=== PATIENT | male | born 1940 | race Caucasian/White ===

== ENCOUNTER → 2016-08-14 | Outpatient (CLI) | payer OTHER, BC ==
[~2016-08-14] MED LIST: ADVIL100 M2 PO; ANDROGEL150 GM TOP; ANDROGEL2.5 GM; APAP500 PO; ASPIRIN EC81 M1 PO; ASPIRIN325 PO; ATABEX DHA CAP1 EACH PO; ATENOLOL 25 MG25 M1 PO; ATENOLOL 50MG T50 M1 PO; CENTRUM COMPLE1 EACH PO; CHLOR-TABLET4 MG PO; CIPRO250 M2; COLACE100 MG PO; DIPHEN25 M1; DOXYCYCLINE 10100 M1 PO; FLECAINIDE ACE100 MG PO; FLEXERIL PO; FLOMAX0.4 MG PO; GLUCOSAMIN-CHO1 EACH PO; LISINOPRIL10 MG PO; NORVASC 5 MG TAB5 MG PO; ODORLESS GARLI500 MG PO; OMEGA-31000 MG PO; ONE-A-DAY WOMENS PO; PERCOCET 10-321 EACH PO; ZOCOR 20 MG TAB20 M1 PO
== END ==
LOC: MRI 15:29
DX: M25.512 Pain in left shoulder (principal)

== ENCOUNTER 2018-05-23 20:06 | Inpatient (IN) | payer OTHER, BC ==
[~2018-05-23] VITALS: Ht 190.5 cm; Wt 102.1 kg
[~2018-05-23 20:06] MED LIST changes: -COLACE100 MG PO
[2018-05-23 20:20] VITALS: BP 96/73
[2018-05-23 20:35] LABS: HEMATOCRIT 49.1 % (42.0-52.0); HEMOGLOBIN 16.7 gm/dL (14.0-18.0); MCH 34.1 pg (26.0-34.0); MCV 100.1 fL (80.0-100.0); PLATELET COUNT 110 thou/uL (150-400); RBC 4.91 mil/uL (4.50-6.00); RDW 13.1 % (10.5-14.5); WBC 7.5 thou/uL (4.0-11.0)
[2018-05-23 20:47] LABS: ANION GAP 9 mmol/L (7-16); BUN 34 mg/dL (7-18); CALCIUM 9.1 mg/dL (8.5-10.1); CHLORIDE 105 mmol/L (98-107); CO2 25 mmol/L (21-32); CREATININE 2.1 mg/dL (0.7-1.3); GLUCOSE 131 mg/dL (74-106); SODIUM 139 mmol/L (136-145)
[2018-05-23 20:56] LABS: ABSOLUTE NEUTROPHILS 3.4 thou/uL (1.4-8.2); TROPONIN-I <0.06 ng/mL (<0.06)
[2018-05-23 20:57] LABS: ANISOCYTOSIS 1+; POLYCHROMASIA OCCASIONAL
--- NOTE | 2018-05-23 23:38 | NUR ---
CALLED PER PT REQUEST, NUMBER TO ED GIVEN FOR BAD ASSIGNMENT FOLLOW UP IN THE MORNING
[2018-05-24] MEDS ORDERED: VITAMIN D5000 UNIT PO (01:19)
[2018-05-24 01:38] VITALS: BP 141/90
[2018-05-24 06:36] LABS: CHOLESTEROL 93 mg/dL (<200); HDL CHOLESTEROL 37 mg/dL (>40); LDL CHOLESTEROL 45 mg/dL (<100); TC:HDL 2.5 Ratio (Not establshd); TRIGLYCERIDE 55 mg/dL (<150); VLDL 11 mg/dL (<40)
[2018-05-24 06:38] LABS: TROPONIN-I 8.26 ng/mL (<0.06)
[2018-05-24 07:24] VITALS: BP 109/85
--- NOTE | 2018-05-24 10:08 | EKG ---
[address] [place] [employer] [place] [address] ELECTROCARDIOGRAM REPORT Name: LATRICE KOVACS Room #: 207-P ADM IN M.R.#: [id number] Admission: 05/23/18 Attend Phys: Wei Queen Discharge: Date of : 42 Report #: [id number] THIS REPORT FOR: //name// [facility] ED Test Date: 2018-05-23 Test Time: 20:15:19 Pat Name: LATRICE KOVACS Department: Room: 207 Gender: M Senior Java Data Architect: SANDRA : 1940 Requested By: Nicholas Orlando Order Number: [id number] MD: Christopher Banerjee Measurements Intervals [place] Rate: 105 P: 77 WV: 183 QRS: -51 QRSD: 99 T: 58 QT: 366 QTc: 484 Interpretive Statements Atrial flutter with 2:1 AV conduction Left anterior fascicular block Abnormal R-wave progression, early transition Anteroseptal ST segment elevation, consider injury Compared to ECG 04/11/2016 08:00:08 Repolarization abnormality is now present Electronically Signed On 05-24-2018 10:08:25 LEDGER POSTER by hCristopher Banerjee [email or web address] <ELECTRONICALLY SIGNED> By: Christopher Banerjee MD, FAC 05/24/18 1008 14 14 Christopher Banerjee MD, FAC /EPI
--- NOTE | 2018-05-24 10:16 | EKG ---
[address] [address] ELECTROCARDIOGRAM REPORT Name: LATRICE KOVACS Room #: 207-P ADM IN M.R.#: [id number] Admission: 05/23/18 Attend Phys: Wei Queen Discharge: Date of : 42 Report #: [id number] THIS REPORT FOR: //name// [facility] ED Test Date: 2018-05-24 Test Time: 06:43:12 Pat Name: LATRICE KOVACS Department: Room: 207 Gender: M Excavating Contractor: Stefano SALGADO : 1940 Requested By: Brittanie Sims Order Number: [id number] MD: Christopher Banerjee Measurements Intervals [place] Rate: 109 P: 78 [place]: 183 QRS: -60 QRSD: 130 T: 39 QT: 341 QTc: 460 Interpretive Statements Probable atrial flutter with 2:1 AV conduction LAFB Probable anterolateral infarct, acute Compared to ECG 04/11/2016 08:00:08 anterior repolarization abnormality is more pronounced Electronically Signed On 05-24-2018 10:15:55 MANAGER ENGLISH by Christopher Banerjee [email or web address] <ELECTRONICALLY SIGNED> By: Christopher Banerjee MD, FACC 05/24/18 1015 0643 0643 Chrisotpher Banerjee MD, [facility] /EPI
--- NOTE | 2018-05-24 10:31 | CATHLAB ---
[facility] [address] [place] [address] INVASIVE PROCEDURE REPORT Name: LATRICE KOVACS Room #: 207-P [facility] IN [facility].#: [id number] Admission: 05/23/18 Attend Phys: Wei Orozco Discharge: Date of : 42 Date of Service: 05/24/18 1030 Report #: [id number] THIS REPORT FOR: //name// APPROVED REPORT Study performed: 05/24/2018 07:35:23 Patient Details Patient Status: ED Room #: The patient is a 77 year-old male Event Personnel Christopher Banerjee Residential Carpenter, Oma Martinez RN RN, Emily Seals RTR, JASON Moseley, Klaus Warner Monitor Procedures Performed Left Heart Cath w/or w/o Coronaries [id number] [facility], PCI of diagonal branch Indication STEMI (>12 hrs to = 24 hrs), Chest pain Risk Factors Arterial HypertensionDysplipidemia , HypertensionRenal Failure Procedure Narrative The Right Groin^ was infiltrated with 1% Lidocaine subcutaneous anesthesia. A PINNACLE 6FR Sheath #[id number] sheath was inserted into the RFA^. Coronary angiography was performed using coronary diagnostic catheters. The right coronary system was accessed and visualized with a JR4 catheter. The left coronary system was accessed and visualized with a JL4 catheter. The left ventricle was accessed and visualized with a PIGTAIL catheter. Left ventricular/Aortic Valve gradient assessed via catheter pullback. Left ventriculogram was performed in 30 degree projection. Closure device was deployed with a 6 Fr MYNXGRIP 6/7F #[id number]. There was no hematoma. Intraoperative Conscious Sedation Sedation start time: 7.50 Case end Time: 10.06 Fentanyl 100 mcg Dose: DAP 32508 cGycm2 3731 mGy Contrast Type and Amount: Visipaque 190 ml [facility] [place] [address] INVASIVE PROCEDURE REPORT Name: LATRICE KOVACS Room #: 207-P [facility] IN .R.#: [id number] Admission: 05/23/18 Attend Phys: Wei Orozco Discharge: Date of : 42 Date of Service: 05/24/18 1030 Report #: [id number] Coronary Angiography The patient's coronary anatomy is right dominant. Diagnostic Cath Left Main Large, normal left main LAD Mild proximal and mid vessel LAD plaquing Diagonal 1 The first diagonal was occluded in its midportion, just after its first bifurcation Circumflex The circumflex was large and comprised of a single marginal branch. OM1 Normal, large first marginal branch Right Coronary The right coronary was large, dominant and exhibited mild tended 20% proximal, mid, and distal vessel plaquing R PDA Large posterior descending branch, angiographically normal RPLV Large posterior lateral branch, angiographically normal Left Ventriculography The left ventricle is normal in size with normal contractility. The left ventricular ejection fraction is estimated to be 50-55%. Left ventricular wall motion abnormalities are present. There is no mitral insufficiency. Hypokinesis of the distal anterolateral wall Hemodynamics The aortic pressure is 138/86 mmHg with a mean of 113 mmHg. The left ventricular pressure is 163/22 mmHg with a mean of mmHg. The left ventricular end diastolic pressure is 26 mmHg. There was no gradient across the aortic valve upon pullback. Pullback from the left ventricle to the aorta revealed no gradient across the aortic valve. PCI Technique Lesion Anticoagulation was achieved with Heparin, Integrilin. Percutaneous coronary intervention was performed on the first diagonal branch. The lesion stenosis prior to intervention was 100% with JANE 0 flow. A LAUNCHER 6FR JL4.5 #[id number] Guide Catheter was used to engage the ostium. A Luge Wire .014 x 182CM #[id number] Interventional Guidewire was used to cross the lesion. BALLOON DILATION A Balloon catheter Sprinter OTW 2.5 x 12 #[id number] was inserted and inflated up to meliza for seconds. Multiple attempts were made to wire the diagonal branch occlusion without success. This vessel appeared very tortuous in its midsection. Given the late presentation, [facility] [address] [place] [address] INVASIVE PROCEDURE REPORT Name: LATRICE KOVACS Room #: 207-P [facility] IN .R.#: [id number] Admission: 05/23/18 Attend Phys: Wei Orozco Discharge: Date of : 42 Date of Service: 05/24/18 1030 Report #: [id number] resolution of chest pain, and nature of the stenosis, the risk of further manipulation and/or intervention was thought to exceed the benefit. Final angiography reveals 100 % stenosis with JANE 0 flow. Conclusion 1. Mild left ventricular dysfunction with hypokinesis of the distal anterolateral wall. EF 50-55% 2. Normal left main 3. Mild plaquing of the LAD. Occlusion of the midportion of the first diagonal branch as detailed above 4. Normal, nondominant circumflex 5. Large, dominant right coronary with mild plaquing Recommendations Cardiac Rehabilitation Referral Aggressive Medical Therapy Medications Administered MARLYN Inhibitor (any) Aspirin (any) Beta Nicole (any) Statin (any) Cardiac Rehabilitation Referral <ELECTRONICALLY SIGNED> By: Christopher Banerjee MD, [facility] 05/24/18 1030 1030 1030 Christopher Banerjee MD, FAC /INF
--- NOTE | 2018-05-24 10:49 | NUR ---
PT ORIENTED TO ROOM AND UNIT. BED LOW AND LOCKED, SIDE RAILS UPX 3, CALL LIGHT IN REACH. RIGHT GROIN CDI WIHT NO HEMATOMA. WILL CONTINUE TO ASSESS.
--- NOTE | 2018-05-24 14:42 | NUR ---
PT OFF BEDREST UP TO VOID. ONLY ABLE TO VOID A LITTLE AT AT TIME. WILL CHECK OVR AND ONFORM ATTENDING.
--- NOTE | 2018-05-24 17:36 | NUR ---
DR. BELTRAN WILL ADD TENORMIN PO TO [facility] TO HELP RATE CONTROL.
--- NOTE | 2018-05-24 19:10 | NUR ---
BEDSIDE REPORT GIVEN TO CARSON MADDEN/
[2018-05-24 20:15] VITALS: BP 136/77
[2018-05-24 23:10] VITALS: BP 107/77
--- NOTE | 2018-05-25 02:40 | NUR ---
ASSUMED PT CRE AT 1900. PT A/OX4, VITAL SIGNS STABLE, ASSESSMENT CHARTED. NO COMPLAINTS OF CHEST PAIN. PT COMPLAINED OF SOME BACK PAIN FROM PROLONGED BEDREST. PAIN ADEQAUTELY MANAGED WITH REPOSITIONING, AND SITTING IN RECLINER. BLADDER SCANNED AT 0230, WHICH INDICATED 710ML RESIDUAL VOLUME. PT WAS ABLE TO AMBULATE TO BATHROOM AND VOIDED APPROXIMATELY 400-500ML. BLADDER SCANNED AGAIN AT ABOUT 2235WHICH INDICATED 320ML RESIDUAL VOLUME. AT ABOUT MIDNIGHT, PT WAS ABLE TO VOID ABOUT 300ML. PT RESTE WELL THROUGH THE NIGHT. CALLED APPROPRIATELY. PROGRESSING TOWARD PLAN OF CARE. WILL CONTINUE TO MONITOR.
[2018-05-25 04:09] LABS: CALCIUM 8.3 mg/dL (8.5-10.1); POTASSIUM 4.5 mmol/L (3.5-5.1); TOTAL BILIRUBIN 0.6 mg/dL (<0.1-1.0); TOTAL PROTEIN 6.1 g/dL (6.4-8.2)
[2018-05-25 04:18] LABS: TROPONIN-I 27.04 ng/mL (<0.06)
[2018-05-25 04:24] LABS: HEMOGLOBIN 15.2 gm/dL (14.0-18.0); MCH 33.6 pg (26.0-34.0); MCHC 33.1 g/dL (28.0-37.0); MCV 101.5 fL (80.0-100.0); RBC 4.53 mil/uL (4.50-6.00); RDW 13.6 % (10.5-14.5)
[2018-05-25 04:37] VITALS: BP 110/62
[2018-05-25 07:11] VITALS: BP 113/66
--- NOTE | 2018-05-25 08:18 | EKG ---
[address] [address] ELECTROCARDIOGRAM REPORT Name: LATRICE KOVACS Room #: 207-P ADM IN M.R.#: [id number] Admission: 05/23/18 Attend Phys: Kiran Oliver MD Discharge: Date of : 42 Report #: [id number] THIS REPORT FOR: //name// [facility] Test Date: 2018-05-25 Test Time: 06:31:17 Pat Name: LATRICE KOVACS Department: Room: 207 P Gender: M Online Publisher: FALGUNI : 1940 Requested By: Christopher Banerjee Order Number: [id number] MD: Christopher Banerjee Measurements Intervals [place] Rate: 83 P: [place]: QRS: -67 QRSD: 119 T: -3 QT: 327 QTc: 385 Interpretive Statements Atrial flutter Incomplete right bundle branch block Anterolateral infarct, recent Compared to ECG 05/24/2018 06:43:12 Ventricular response has slowed Electronically Signed On 05-25-2018 8:18:07 CAMP DIRECTOR by Christopher Banerjee [email or web address] <ELECTRONICALLY SIGNED> By: Christopher Banerjee MD, [facility] 05/25/18817 0 0 Christopher Banerjee MD, [facility] /EPI
[2018-05-25 12:04] VITALS: BP 102/68
--- NOTE | 2018-05-25 12:14 | 2DMMODE ---
[facility] [address] [facility] [employer] [place] [address] 2 D/M-MODE ECHOCARDIOGRAM Name: LATRICE KOVACS Room #: 207-P ADM IN M.R.#: [id number] Admission: 05/23/18 Attend Phys: Kiran Oliver MD Discharge: Date of : 42 Date of Service: 05/25/18 1214 Report #: [id number] THIS REPORT FOR: //name// APPROVED REPORT Study performed: 05/25/2018 11:22:27 EXAM: Comprehensive 2D, Doppler, and color-flow Echocardiogram Patient Location: Echo lab Room #: [facility] Status: routine BSA: 2.31 HR: 90 bpm BP: 113/66 mmHg Rhythm: Irregular Other Information Study Quality: Adequate Indications Acute NC, Atrial flutter, chest pain. Hx: Afib, HTN,HLP 2D Dimensions RVDd: 37.66 mm IVSd: 12.36 (7-11mm) LVOT Diam: 20.87 (18-24mm) LVDd: 46.43 mm PWd: 11.80 (7-11mm) Ascending Ao: 34.04 (22-36mm) LVDs: 30.49 (25-40mm) Aortic Root: 36.73 mm Volumes Left Atrial Volume (Systole) Single Plane 4CH: 59.81 mL Single Plane 2CH: 61.36 mL LA ESV Index: 29.00 mL/m2 Aortic Valve AoV Peak Bautista.: 1.41 m/s AO Peak Gr.: 8.00 mmHg LVOT Max P.25 mmHg LVOT Max V: 1.03 m/s CORNELIUS Vmax: 2.49 cm2 Mitral Valve E/A Ratio: 2.0 MV Decel. Time: 143.25 ms MV E Max Bautista.: 0.89 m/s [facility] [place] [address] 2 D/M-MODE ECHOCARDIOGRAM Name: LATRICE KOVACS Room #: 207-P [facility] IN M.R.#: [id number] Admission: 05/23/18 Attend Phys: Kiran Oliver MD Discharge: Date of : 42 Date of Service: 05/25/18 1214 Report #: [id number] MV A Bautista.: 0.44 m/s MV PHT: 41.54 ms IVRT: 76.12 ms Pulmonary Valve PV Peak Bautista.: 0.84 m/s PV Peak Gr.: 2.80 mmHg Pulmonary Vein P Vein S: 0.41 m/s P Vein D: 0.24 m/s P Vein S/D Ratio: 1.71 Tricuspid Valve TR Peak Bautista.: 2.24 m/s RAP Estimate: 5.00 mmHg TR Peak Gr.: 20.11 mmHg PA Pressure: 25.00 mmHg Left Ventricle The left ventricle is normal size. There is normal left ventricular wall thickness. Left ventricular systolic function is normal. LVEF is 50-55%. Right Ventricle The right ventricle is normal size. The right ventricular systolic function is normal. Atria The left atrium size is normal. The right atrium size is normal. Aortic Valve Aortic valve leaflets are mildly thickened. No aortic regurgitation is present. There is no aortic valvular stenosis. Mitral Valve The mitral valve is normal in structure. Trace to mild mitral regurgitation. Tricuspid Valve The tricuspid valve is normal in structure. Trace tricuspid regurgitation. Estimated PAP is 25mmHg Pulmonic Valve The pulmonary valve is normal in structure. Trace pulmonic regurgitation. [facility] [address] [place] [address] 2 D/M-MODE ECHOCARDIOGRAM Name: DAVIDACHRISTENLATRICE SMITH Room #: 207-P [facility] IN M.R.#: [id number] Admission: 05/23/18 Attend Phys: Kiran Oliver MD Discharge: Date of : 42 Date of Service: 05/25/18 1214 Report #: [id number] Great Vessels The aortic root is normal in size. IVC is normal in size and collapses >50% with inspiration. Pericardium There is no pericardial effusion. <Conclusion> The left ventricle is normal size. LVEF is 50-55%. Aortic valve leaflets are mildly thickened. The mitral valve is normal in structure. Trace to mild mitral regurgitation. The tricuspid valve is normal in structure. Trace tricuspid regurgitation. Estimated PAP is 25mmHg The pulmonary valve is normal in structure. Trace pulmonic regurgitation. There is no pericardial effusion. <ELECTRONICALLY SIGNED> By: Butch Harkins MD 05/25/18 1214 121 13 Butch Harkins MD /INF
[2018-05-25 15:00] VITALS: BP 95/64
--- NOTE | 2018-05-25 19:18 | NUR ---
ASSUMED PATIENT CARE THIS AM. PATIENT LYING IN BED, A&O. ROOM AIR. UP WITH STAND BY ASSIST. VOIDING IN BATHROOM. PATIENT BLADDER SCAN POST VOID, MINIMAL, NO STRAIGHT CATH NEEDED. TOLERATING DIET. PATIENT STATES HE WOULD LIKE TO REST THIS AFTERNOON. MINIMAL INTERUPTIONS UNLESS INDICATED. CALL LIGHT WITHIN REACH.
[2018-05-25 20:15] VITALS: BP 106/58
[2018-05-26 04:31] VITALS: BP 100/63
--- NOTE | 2018-05-26 04:39 | NUR ---
ASSUMED PT CARE AT 1900. PT A/OX4, VITALSIGNS STABLE, ASSESSMENT CHARTED. NO COMPLAINTS OF CHEST PAIN. PT RESTED WELL THROUGH THE NIGHT. PROGRESSING TOWARD PLAN OF CARE. POSSIBLE DISCHARGE IN AM. WILL CONTINUE TO MONITOR.
[2018-05-26 07:45] VITALS: BP 108/70
--- NOTE | 2018-05-26 08:35 | EKG ---
[address] [address] ELECTROCARDIOGRAM REPORT Name: LATRICE KOVACS Room #: 207-P ADM IN M.R.#: [id number] Admission: 05/23/18 Attend Phys: Kiran Oliver MD Discharge: Date of : 42 Report #: [id number] THIS REPORT FOR: //name// [facility] Test Date: 2018-05-26 Test Time: 06:48:40 Pat Name: LATRICE KOVACS Department: Room: 207 P Gender: M Unionmelt Operator: FALGUNI : 1940 Requested By: Christopher Banerjee Order Number: [id number] MD: Christopher Banerjee Measurements Intervals [place] Rate: 102 P: MD: QRS: 0 QRSD: 104 T: 83 QT: 298 QTc: 389 Interpretive Statements Atrial flutter Anterolateral infarct, recent ST elevation, consider inferior injury Compared to ECG 05/25/2018 06:31:[address] segment elevation Electronically Signed On 05-26-2018 8:34:48 SKIVER MACHINE OPERATOR by Christopher Banerjee [email or web address] <ELECTRONICALLY SIGNED> By: Christopher Banerjee MD, [facility] 05/26/18 0834 7 Christopher Banerjee MD, [facility] /EPI
[2018-05-26] MEDS ORDERED: COLACE100 MG PO (09:02)
[2018-05-26 11:45] VITALS: BP 93/62
[2018-05-26] MEDS ORDERED: PRADAXA75 MG PO (11:46)
[2018-05-26] MEDS ORDERED: FLOMAX0.4 MG PO (11:47)
[2018-05-26 13:06] VITALS: BP 93/62
[2018-05-26 13:22] VITALS: BP 122/66
--- NOTE | 2018-05-26 14:14 | NUR ---
ASSUMED PATIENT CARE THIS AM. PATIENT LYING IN BED, A&O. ROOM AIR. UP AD JAIME. NO COMPLAINTS STATED. DISCHARGE HOME WITH THIS AFTERNOON.
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
== END 2018-05-26 14:10 | disposition home or self-care (01) | DRG 250 ==
LOC: ER 20:06 → 2N 21:51 → EROBS 21:51 → 2N 05-24 09:09 → ENTRNSPT 05-26 13:59 → EDTRNSPTSTS 05-26 14:02 → 2N 05-26 14:10
PROVIDERS: Internal Medicine; Nurse Practitioner Acute Care; Physician Assistant; ADMIT Internal Medicine
DX: I21.4 Non-ST elevation (NSTEMI) myocardial infarction (principal); I50.33 Acute on chronic diastolic (congestive) heart failure; I48.92 Unspecified atrial flutter; D68.59 Other primary thrombophilia; E78.00 Pure hypercholesterolemia, unspecified; I12.9 Hypertensive chronic kidney disease with stage 1 through stage 4 chronic kidney disease, or unspecified chronic kidney disease; E78.5 Hyperlipidemia, unspecified; I48.0 Paroxysmal atrial fibrillation; N18.3 Chronic kidney disease, stage 3 (moderate); I20.0 Unstable angina; Z88.8 Allergy status to other drugs, medicaments and biological substances; Z82.49 Family history of ischemic heart disease and other diseases of the circulatory system; Z82.3 Family history of stroke
CPT/HCPCS: 10081